=== PATIENT | female | born 1950 | race Caucasian/White ===

== ENCOUNTER → 2017-01-10 | Day surgery (SDC) | payer OTHER, MEDICARE ==
[~2017-01-10] VITALS: Ht 152.4 cm; Wt 108.9 kg
[~2017-01-10] MED LIST: HUMALOG100 UNIT/2; LANTUS SOL100 UNIT/1; LORAZEPAM0.5 M1 PO; LOSARTAN POTAS100 M1 PO; VICODIN ES 7.51 EACH PO; WARFARIN
[2017-01-10 09:26] LABS: PT 11.8 SEC (9.4-12.5)
--- NOTE | 2017-01-14 17:53 | Operative Report ---
See Addendum Operative/Inv Procedure Report Surgery Date: 01/10/17 Name of Procedure: Excision of deep right inguinal lymph node Pre-Operative Diagnosis: Inguinal lymphadenopathy history of lymphoma Post-Operative Diagnosis: Same Estimated Blood Loss: scant Surgeon/Criminal Lawyer: ELFEGO SELLERS,KARLA Parikh Anesthesia: local monitored anesthesi Operative/Procedure Note Note: Patient positioned supine after induction of anesthesia and timeouts and IV antibiotics a 3 cm inguinal incision on the right was planned overlying the palpable lymphadenopathy just lateral to the palpable femoral pulse after injecting local anesthetic incision was made with a 15 blade and deepened with cautery and then dissecting deeper through the fascia and sweeping the fat off and enlarged rounded lymph node there were others there but this was most accessible it was dissected free until only the hilum and blood supply was remaining which was suture ligated with 3-0 Vicryl suture, and then the specimen was sent fresh to pathology. The resulting space was checked for hemostasis irrigated closed back up in layers using interrupted 3 and 2-0 Vicryl sutures deep and a running subcuticular 4-0 Biosyn suture for the skin itself followed by Mastisol Steri-Strips Telfa and Tegaderm. EBL minimal lap and sponge counts correct wound expectancy clean IV fluids crystalloid complications none patient tolerated the procedure well was awakened and returned to recovery room in satisfactory condition.
== END ==
LOC: STS 00:41
PROVIDERS: Surgery
DX: R59.0 Localized enlarged lymph nodes (principal); Z85.72 Personal history of non-Hodgkin lymphomas; E11.9 Type 2 diabetes mellitus without complications; Z79.4 Long term (current) use of insulin; F17.200 Nicotine dependence, unspecified, uncomplicated; I10 Essential (primary) hypertension; Z86.718 Personal history of other venous thrombosis and embolism; Z79.01 Long term (current) use of anticoagulants; E66.9 Obesity, unspecified; Z68.42 Body mass index [BMI] 45.0-49.9, adult
CPT/HCPCS: 36415; 88305; J1100; J2250; J2405